=== PATIENT | female | born 1990 | race Two or more races ===

== ENCOUNTER 2018-03-28 13:55 | Observation (INO) | payer SELFPAY | END 2018-03-28 14:55 | disposition home or self-care (01) | DRG 782 | LOC: LDRP 13:55 | PROVIDERS: ADMIT Specialist; ATTEND Specialist | DX: O62.9 Abnormality of forces of labor, unspecified (principal); Z3A.38 38 weeks gestation of pregnancy | CPT/HCPCS: 59025; 81002; G0378 ==

== ENCOUNTER 2018-04-02 08:58 | Observation (INO) | payer MEDICAID ==
[~2018-04-02] VITALS: Ht 170.2 cm; Wt 100.7 kg
[2018-04-02] MEDS ORDERED: FERR-7 PO (09:30)
[2018-04-02] MEDS ORDERED: PREN-96 PO (09:30)
[2018-04-02 10:16] LABS: Alcohol, Urine < 3.0 mg/dL (0-5); Amphetamine Screen, Urine NEGATIVE (NEGATIVE); Barbiturate Scree,Urine NEGATIVE (NEGATIVE); Benzodiazephine Screen, Urine NEGATIVE (NEGATIVE); Cannabinoid Screen, Urine NEGATIVE (NEGATIVE); Cocaine Screen, Urine NEGATIVE (NEGATIVE); Opiate Scree,Urine NEGATIVE (NEGATIVE); Phencyclidine Screen, Urine NEGATIVE (NEGATIVE)
== END 2018-04-02 12:14 | disposition home or self-care (01) | DRG 566 ==
LOC: LDRP 08:58
PROVIDERS: ADMIT Specialist; ATTEND Specialist
DX: O62.9 Abnormality of forces of labor, unspecified (principal); O26.893 Other specified pregnancy related conditions, third trimester; F17.210 Nicotine dependence, cigarettes, uncomplicated; N89.8 Other specified noninflammatory disorders of vagina; O99.333 Smoking (tobacco) complicating pregnancy, third trimester; Z3A.39 39 weeks gestation of pregnancy
CPT/HCPCS: 59025; 76818; 80307; 81002; G0378